=== PATIENT | female | born 1960 | race Caucasian/White ===

== ENCOUNTER 2021-08-26 13:57 | Inpatient (IN) | payer OTHER ==
[~2021-08-26] VITALS: Ht 165.1 cm; Wt 99.3 kg
[2021-08-26 14:07] VITALS: BP_SYST 142
--- NOTE | 2021-08-26 14:20 | NUR ---
Patient to ER bed 5 to gown for evaluation. Side rails up. Report given to ADALBERTO JONES.
[2021-08-26] MEDS ORDERED: NEPH GT (14:50)
[2021-08-26] MEDS ORDERED: LIP80 GT (14:50)
[2021-08-26] MEDS ORDERED: ASA81 PO (14:50)
[2021-08-26] MEDS ORDERED: BISA10SU61 RC (14:50)
[2021-08-26] MEDS ORDERED: CHLO473M5 PO (14:50)
[2021-08-26] MEDS ORDERED: ALBU8.5H8 INH (14:50)
[2021-08-26] MEDS ORDERED: HYDR-3917 PO (14:50)
[2021-08-26] MEDS ORDERED: AMLO5TAB4 GT (14:50)
[2021-08-26] MEDS ORDERED: COLL100 GT (14:50)
[2021-08-26] MEDS ORDERED: CARV25TA55 GT (14:50)
[2021-08-26] MEDS ORDERED: VALP500S4 GT (14:50)
[2021-08-26] MEDS ORDERED: CAT1PAT GT (14:50)
[2021-08-26] MEDS ORDERED: MIDO10TA GT (14:50)
[2021-08-26] MEDS ORDERED: ACET325T GT (14:50)
[2021-08-26] MEDS ORDERED: LACT10SO7 GT (14:50)
[2021-08-26] MEDS ORDERED: CLOP75TA32 GT (14:50)
[2021-08-26] MEDS ORDERED: FER300L GT (14:50)
[2021-08-26] MEDS ORDERED: LEVE500T9 GT (14:50)
--- NOTE | 2021-08-26 14:52 | NUR ---
Medication reconciliation completed with information provided by [facility]. Any prior medication reconciliation on file was reviewed and corrected.
[2021-08-26] MEDS ORDERED: MORPHINE 4 MG INJ. 4 MG/ML VIAL IVP ONE (15:15)
--- NOTE | 2021-08-26 15:17 | NUR ---
ER at bedside examining patient.
--- NOTE | 2021-08-26 15:39 | NUR ---
# 22 gauge angiocath placed to right forearm. Use of asceptic technique. Opsite placed over site. Blood return noted. Blood for lab drawn from site. Flushed with 10 cc of normal saline. No evidence of infiltration noted. Patient tolerated well.
[2021-08-26 15:56] LABS: BASOPHILS # (AUTO) 0.1 K/uL (0.0-0.2); BASOPHILS % (AUTO) 0.7 % (0.0-2.0); EOSINOPHILS # (AUTO) 1.1 K/uL (0.0-0.4); EOSINOPHILS % (AUTO) 13.3 % (0.0-4.0); HEMATOCRIT 34.7 % (36-48); HEMOGLOBIN 11.7 g/dL (12.0-16.0); LYMPHOCYTES # (AUTO) 1.9 K/uL (1.0-5.5); LYMPHOCYTES % (AUTO) 22.9 % (20.5-51.5); MEAN CORPUSCULAR HEMOGLOBIN 31 pg (27-31); MEAN CORPUSCULAR HGB CONC 34 % (32-36); MEAN CORPUSCULAR VOLUME 90 fL (79.0-98.0); MONOCYTES # (AUTO) 0.6 K/uL (0.0-1.0); MONOCYTES % (AUTO) 7.7 % (1.7-9.3); NEUTROPHILS # (AUTO) 4.7 K/uL (1.8-7.7); NEUTROPHILS % (AUTO) 55.4 % (40.0-70.0); PLATELET COUNT (AUTO) 127 K/uL (130-430); RED BLOOD CELL COUNT(AUTO) 3.84 MIL/uL (4.2-6.2); RED CELL DISTRIBUTION WIDTH 18.9 % (9.0-15.0); WHITE BLOOD COUNT (AUTO) 8.4 K/uL (4.8-10.8)
[2021-08-26 16:07] LABS: CALCIUM 10.7 mg/dL (8.4-11.0); POTASSIUM 4.7 mmol/L (3.5-5.1)
[2021-08-26 16:20] LABS: ALBUMIN 2.8 g/dL (3.4-4.8); TOTAL BILIRUBIN 0.2 mg/dL (0.0-1.0)
[2021-08-26 16:23] LABS: CREATININE 7.67 mg/dL (0.55-1.30)
--- NOTE | 2021-08-26 17:17 | NUR ---
Note angelita in EDM - 08/26/21 at 1719 by [email or web address] Admit bed requested Patient will be admitted to care of . Admitted to MedSurg unit. Diagnosis Renal Failure Inpatient Yes Observation No Orientation concerns or request close to nursing station No Covid Status Negative On vent or bipap No Isolation requirements No Needs a sitter No From Home [facility] Requires Dialysis Yes Med Rec Completed Yes
--- NOTE | 2021-08-26 17:19 | NUR ---
Admit bed requested Patient will be admitted to care of . Admitted to Tele unit. Diagnosis Renal Failure Inpatient Yes Observation No Orientation concerns or request close to nursing station No Covid Status Negative On vent or bipap No Isolation requirements No Needs a sitter No From Home [facility] Requires Dialysis Yes Med Rec Completed Yes
--- NOTE | 2021-08-26 19:06 | NUR ---
Admission Note Received patient from ER with diagnosis of RENAL FAILURE. Initial Plan of Care discussed-patient verbalized understanding. riented to room, call light, pain management and safety.
--- NOTE | 2021-08-26 19:22 | NUR ---
Patient will be admitted to care of Dr. Dumont. Admitted to Tele unit. Will go to room 120A. Belongings list completed. Complete and up to date summary report printed. SBAR report to be given at bedside with opportunity for questions.
[2021-08-26 19:30] VITALS: BP_SYST 141
--- NOTE | 2021-08-26 19:59 | NUR ---
KAREN Arthur spoke to Dr. Thomas over phone, received order for dialysis: 3Hr, 3K+, UF 2-2.5L
[2021-08-26 20:00] VITALS: BP_SYST 141
[2021-08-26] MEDS ORDERED: NALOXONE HCL 0.4 MG/ML AMP (NARCAN) IVP PRN (20:30)
[2021-08-26] MEDS ORDERED: GLUCOSE (DEXTROSE) ORAL GEL -Adults PO PRN (20:30)
[2021-08-26] MEDS ORDERED: D5W 1,000 ML IV PRN (20:30)
[2021-08-26] MEDS ORDERED: DEXTROSE 50% JECT 50 ML DISP.SYRIN IVP PRN (20:30)
[2021-08-26] MEDS ORDERED: HEPARIN SODIUM,PORCINE 5,000 UNITS/ML VIAL MC ONE (20:45)
[2021-08-26] MEDS: MORPHINE 2 MG/ML INJ. SYRINGE IVP PRN (21:26)
[2021-08-27] VITALS (7 sets, daily range): BP systolic 114–143
[2021-08-27] MEDS ORDERED: INSULIN REGULAR, HUMAN 100 UNITS/ML, 10 ML VIAL (humuLIN R) SUBCUT PRN
[2021-08-27 07:00] LABS: BASOPHILS # (AUTO) 0.1 K/uL (0.0-0.2); BASOPHILS % (AUTO) 0.6 % (0.0-2.0); EOSINOPHILS # (AUTO) 0.8 K/uL (0.0-0.4); EOSINOPHILS % (AUTO) 8.6 % (0.0-4.0); HEMATOCRIT 36.3 % (36-48); HEMOGLOBIN 12.2 g/dL (12.0-16.0); LYMPHOCYTES # (AUTO) 1.6 K/uL (1.0-5.5); LYMPHOCYTES % (AUTO) 16.4 % (20.5-51.5); MEAN CORPUSCULAR HEMOGLOBIN 31 pg (27-31); MEAN CORPUSCULAR HGB CONC 34 % (32-36); MEAN CORPUSCULAR VOLUME 91 fL (79.0-98.0); MONOCYTES # (AUTO) 0.9 K/uL (0.0-1.0); MONOCYTES % (AUTO) 8.7 % (1.7-9.3); NEUTROPHILS # (AUTO) 6.4 K/uL (1.8-7.7); NEUTROPHILS % (AUTO) 65.7 % (40.0-70.0); PLATELET COUNT (AUTO) 123 K/uL (130-430); RED BLOOD CELL COUNT(AUTO) 3.99 MIL/uL (4.2-6.2); RED CELL DISTRIBUTION WIDTH 18.9 % (9.0-15.0); WHITE BLOOD COUNT (AUTO) 9.8 K/uL (4.8-10.8)
[2021-08-27 07:03] LABS: ALBUMIN 2.9 g/dL (3.4-4.8); CALCIUM 10.3 mg/dL (8.4-11.0); CREATININE 4.92 mg/dL (0.55-1.30); POTASSIUM 4.2 mmol/L (3.5-5.1); TOTAL BILIRUBIN 0.2 mg/dL (0.0-1.0)
--- NOTE | 2021-08-27 10:35 | NUR ---
CONSULT NEPHROLOGY ESRD DR DILL.STEPHIE [phone] BEAL IS RESPIRATORY SUPPORT TECHNICIAN PER DR BEAL'S NOTES IS AWARE
[2021-08-27] MEDS: ACETAMINOPHEN 650 MG/20.3 ML UDC GT PRN (21:27)
[2021-08-28 00:14] VITALS: BP_SYST 133
[2021-08-28 07:47] LABS: BASOPHILS % (AUTO) 0.5 % (0.0-2.0); EOSINOPHILS # (AUTO) 1.1 K/uL (0.0-0.4); EOSINOPHILS % (AUTO) 11.6 % (0.0-4.0); HEMATOCRIT 34.2 % (36-48); HEMOGLOBIN 11.5 g/dL (12.0-16.0); LYMPHOCYTES # (AUTO) 2.5 K/uL (1.0-5.5); LYMPHOCYTES % (AUTO) 26.2 % (20.5-51.5); MEAN CORPUSCULAR HEMOGLOBIN 31 pg (27-31); MEAN CORPUSCULAR HGB CONC 34 % (32-36); MEAN CORPUSCULAR VOLUME 91 fL (79.0-98.0); MONOCYTES # (AUTO) 0.9 K/uL (0.0-1.0); NEUTROPHILS # (AUTO) 4.9 K/uL (1.8-7.7); NEUTROPHILS % (AUTO) 51.7 % (40.0-70.0); PLATELET COUNT (AUTO) 118 K/uL (130-430); RED BLOOD CELL COUNT(AUTO) 3.76 MIL/uL (4.2-6.2); RED CELL DISTRIBUTION WIDTH 18.5 % (9.0-15.0); WHITE BLOOD COUNT (AUTO) 9.4 K/uL (4.8-10.8)
[2021-08-28 08:04] LABS: CALCIUM 10.9 mg/dL (8.4-11.0); CREATININE 7.41 mg/dL (0.55-1.30); POTASSIUM 3.9 mmol/L (3.5-5.1)
[2021-08-28 08:31] VITALS: BP_SYST 134
[2021-08-28 08:36] VITALS: BP_SYST 134
[2021-08-28 12:37] VITALS: BP_SYST 111
--- NOTE | 2021-08-28 14:39 | NUR ---
Dietitian Recommendations * Continue Nepro at 50 ml/hr * Provides 2124 kcals/day, 97 g protein/day * Meeting 90% of upper end of estimated caloric needs and 96% of upper end estimated protein needs Please refer to Nutrition Assessment for details. Addendum: 08/28/21 at [address] Amended: Links added.
[2021-08-28 16:45] VITALS: BP_SYST 114
[2021-08-28] MEDS: IPRATROPIUM/ALBUTEROL SULFATE 3 ML AMPUL.NEB (DUONEB) INH SCH ×2 (19:48→23:26)
[2021-08-28 20:00] VITALS: BP_SYST 131
--- NOTE | 2021-08-28 20:00 | NUR ---
Report received from Anna JONES. Pt is awake alert and oriented x3, vs stable, nsr on tele, no acute distress, trach in place with t-tube, no acute respiratory distress, left hemiplegia noted, tube feeding in progress. Improvised tube flush made in order to flush feeding tube, flushing well without residua. Repositioned and turned pt to prevent skin breakdown. Assuming care and will continue to monitor pt.
[2021-08-28] MEDS: ACETAMINOPHEN 650 MG/20.3 ML UDC GT PRN (22:03)
--- NOTE | 2021-08-29 | NUR ---
Repositioned and turned pt, no significant changes, pt asleep without sign of distress.
[2021-08-29 00:07] VITALS: BP_SYST 156
[2021-08-29] MEDS: IPRATROPIUM/ALBUTEROL SULFATE 3 ML AMPUL.NEB (DUONEB) INH SCH ×6 (03:00→23:15)
[2021-08-29 08:05] VITALS: BP_SYST 140
--- NOTE | 2021-08-29 08:05 | NUR ---
INITIAL ROUNDS Received pt AAOx3, no s/s resp distress, no c/o pain or discomfort. Pt has trach to T-Bar with O2 3L. Nepro infusing well at ordered rate via G-tube with no residual noted. HOB elevated for aspiration precautions. Plan of care for the day reviewed with pt-pt nodded her head "yes". Pt repositioned with pillow support and heels off-loaded for skin care and comfort. Side rails up x3, bed alarm on and room close to nursing station for safety. Call light within reach.
--- NOTE | 2021-08-29 08:45 | NUR ---
CM: SPOKE WITH MARIA DOLORES CANELA) FROM [facility], WAS ASKED WHY THE PT DID NOT RECEIVE DIALYSIS AT THE FACILITY AND HAD TO BE TRANSFERRED HERE FOR EMERGENCY [place], ALSO ASKED IF PT STILL HAVE A ROOM AT [facility] FOR TRANSFER BACK ONCE MEDICALLY STABLE? SHE RESPONDED BY SAYING THAT TRANSPORTATION COULD NOT BE ESTABLISHED TO TAKE PT TO [place] CENTER, AND HER M.D. DECIDED TO HAVE HER TRANSPORTED [facility]IALYSIS [place], PT WAS BROUGHT HERE TO [facility] AND SHE IS NOT CERTAIN IF SHE IS ELIGIBLE TO RETURN TO THEIR FACILITY, SHE SPEAK WITH HER ADMINISTRATION AND CALL BACK WITH AN ANSWER.
--- NOTE | 2021-08-29 08:54 | NUR ---
Dance Historian *LATE ENTRY* entered for 08/28/[address] REPORTER Zahira responded to a generated request for social work support for "Pt. at suicidal risk". The following was reviewed in the 08/26 admission assessment: Refer to SW: NO Pt/SO request Social Service Eval: NO Wish to be : NO Suicidal Thoughts: NO Traver Suicidal Scale: NO Refer to SS for suicide risk: YES ROV[address] REPORTER consulted with patient's RN Esha who denied patient expressing suicidal ideation. ROV[address] REPORTER met with patient at bedside, and patient denied any SI [employer]OV[address] REPORTER will continue to be available if need arises.
[2021-08-29] MEDS ORDERED: HEPARIN SODIUM,PORCINE 5,000 UNITS/ML VIAL IVP ONE (11:00)
[2021-08-29] MEDS ORDERED: HEPARIN SODIUM,PORCINE 5,000 UNITS/ML VIAL MC ONE (11:00)
[2021-08-29 12:08] VITALS: BP_SYST 107
[2021-08-29] MEDS: MORPHINE 2 MG/ML INJ. SYRINGE IVP PRN ×2 (13:05→17:48)
--- NOTE | 2021-08-29 13:14 | NUR ---
HD DONE/ROUNDS/TURN HD completed, 2L out. Pt c/o pain 11/05 given Morphine as ordered. Pt repositioned with pillow support and heels off-loaded for skin care and comfort. Aspiration and safety precautions in place. Call light within reach. precautions in place. New bottle of Nepro now infusing well at ordered rate via g-tube.
[2021-08-29 16:53] VITALS: BP_SYST 128
--- NOTE | 2021-08-29 18:33 | NUR ---
RENAL MD Per Dr. Bowers pt stable to go back to facility.
--- NOTE | 2021-08-29 18:35 | NUR ---
CLOSING NOTE Pt resting quietly in bed with no s/s resp distress, no further c/o pain or discomfort. Aspiration, skin and safety precautions remain in place. Call light within reach.
[2021-08-29 20:00] VITALS: BP_SYST 119
--- NOTE | 2021-08-29 20:00 | NUR ---
Received pt AAOx3, no s/s resp distress, no c/o pain or discomfort. Pt has trach to T-Bar with O2 2L. Nepro infusing well at ordered rate via G-tube with no residual noted. HOB elevated for aspiration precautions. Plan of care for the day reviewed with pt-pt nodded her head "yes". Pt repositioned with pillow support and heels off-loaded for skin care and comfort. Side rails up x3, bed alarm on and room close to nursing station for safety. Call light within reach.will continue to monitor.
[2021-08-29] MEDS: ACETAMINOPHEN 650 MG/20.3 ML UDC GT PRN (20:37)
--- NOTE | 2021-08-30 | NUR ---
NO CHANGES NOTED FROM PREVIOUS ASSESSMENT, REPOSITIONED PER COMFORT, WILL CONTINUE TO MONITOR.
[2021-08-30 00:22] VITALS: BP_SYST 133
[2021-08-30] MEDS: IPRATROPIUM/ALBUTEROL SULFATE 3 ML AMPUL.NEB (DUONEB) INH SCH ×6 (03:00→23:36)
--- NOTE | 2021-08-30 04:00 | NUR ---
PT RESTING COMFORTABLY IN BED, NO S/S OF DISTRESS OR DISCOMFORT NOTED, TBAR 2L ON TRACH, REPOSITIONED PER COMFORT, G-TUBE ASPIRATED 25CC AND FLUSH, WILL CONTINUE TO MONITOR.
[2021-08-30 06:51] LABS: BASOPHILS # (AUTO) 0.1 K/uL (0.0-0.2); BASOPHILS % (AUTO) 0.9 % (0.0-2.0); EOSINOPHILS # (AUTO) 0.9 K/uL (0.0-0.4); EOSINOPHILS % (AUTO) 11.1 % (0.0-4.0); HEMATOCRIT 36.1 % (36-48); HEMOGLOBIN 12.1 g/dL (12.0-16.0); LYMPHOCYTES # (AUTO) 2.1 K/uL (1.0-5.5); MEAN CORPUSCULAR HEMOGLOBIN 31 pg (27-31); MEAN CORPUSCULAR HGB CONC 33 % (32-36); MEAN CORPUSCULAR VOLUME 92 fL (79.0-98.0); MONOCYTES # (AUTO) 0.8 K/uL (0.0-1.0); MONOCYTES % (AUTO) 9.3 % (1.7-9.3); NEUTROPHILS # (AUTO) 4.6 K/uL (1.8-7.7); NEUTROPHILS % (AUTO) 53.7 % (40.0-70.0); PLATELET COUNT (AUTO) 137 K/uL (130-430); RED BLOOD CELL COUNT(AUTO) 3.93 MIL/uL (4.2-6.2); RED CELL DISTRIBUTION WIDTH 18.7 % (9.0-15.0); WHITE BLOOD COUNT (AUTO) 8.6 K/uL (4.8-10.8)
[2021-08-30 06:58] LABS: CALCIUM 11.4 mg/dL (8.4-11.0); CREATININE 7.36 mg/dL (0.55-1.30); POTASSIUM 4.1 mmol/L (3.5-5.1)
--- NOTE | 2021-08-30 07:56 | NUR ---
REPORT GIVEN TO JOHN FOR CONTINUITY OF CARE ALL QUESTIONS WERE ANSWERED AND RN VERBALIZED UNDERSTANDING.
[2021-08-30 08:00] VITALS: BP_SYST 138
[2021-08-30] MEDS: ACETAMINOPHEN 650 MG/20.3 ML UDC GT PRN ×2 (08:40→16:34)
--- NOTE | 2021-08-30 09:00 | NUR ---
CM: PT ADMITTED TO HOSPITAL DUE TO MISSED DIALYSIS TX R/T NO AVAILABLE TRANSPORTATION SETUP, CALLED [facility] FOR ASSISTANCE AND SPOKE WITH ANGELITO WHITTEN , STATED THERE'S BEEN ALMOST NO AVAILABLE DIALYSIS TRANSPORT VENDORS THAT WILL GO INTO THE [facility], BUT IF I WANT TO SEND PT INFO FOR REVIEW FAX TO , WILL AWAIT RESPONSES.
[2021-08-30] MEDS ORDERED: NS IV ONE (11:30)
[2021-08-30] MEDS ORDERED: PAMIDRONATE DISODIUM IV ONE (11:30)
[2021-08-30 12:43] VITALS: BP_SYST 125
[2021-08-30 16:09] VITALS: BP_SYST 130
--- NOTE | 2021-08-30 19:19 | NUR ---
pt confused,resting well in bed,give IV antibiotic due,no adverse reactions noted. called and informed of pt condition,discharge on hold per requests d/c planning called and notified lang that d/c on hold.called [facility] and spoke to nurse erika and notified her that d/c on hold today,pt would needs vancomycin with HD when gets d/c per ID consult .erika said they can accept pt with vanco but awaiting medical clear to d/c. Addendum: 08/30/21 at 1925 by [facility] traffic agent above notes was error for wrong patient
[2021-08-30 20:00] VITALS: BP_SYST 123
--- NOTE | 2021-08-30 20:00 | NUR ---
REC'D PT AAOX3, NO S/S OF ACUTE RESPIRATORY DISTRESS NOTED, NO C/O PAIN OR DISCOMFORT, HOB ELEVATED FOR ASPIRATION PRECAUTIONS, PT ON TUBE FEEDING NEPRO 1.8CAL AT 50ML/HR WITH WATER FLUSH OF 100ML/HR Q4H, VITAL SIGN STABLE, PLAN OF CARE FOR THE DAY REVIEWED WITH PT, PT VERBALIZED UNDERSTANDING, PT REPOSITIONED PER COMFORT WITH PILLOW SUPPORT AND HEELS OFF LOADED, SIDE RAILS UPX3, BED ALARM ON AND ROOM CLOSE TO NURSING STATION FOR SAFETY, CALL LIGHT WITHIN REACH, WILL CONTINUE TO MONITOR. Addendum: 08/31/21 at 0417 by [facility] Elaine terminal worker EC'D PT AAOX3, NO S/S OF ACUTE RESPIRATORY DISTRESS NOTED, NO C/O PAIN OR DISCOMFORT, HOB ELEVATED FOR ASPIRATION PRECAUTIONS, PT ON TUBE FEEDING NEPRO 1.8CAL AT 50ML/HR WITH WATER FLUSH OF 100ML/HR Q4H, PT HAS TRACH PORTEX #7 ON TBAR 2L, VITAL SIGN STABLE, PLAN OF CARE FOR THE DAY REVIEWED WITH PT, PT VERBALIZED UNDERSTANDING, PT REPOSITIONED PER COMFORT WITH PILLOW SUPPORT AND HEELS OFF LOADED, SIDE RAILS UPX3, BED ALARM ON AND ROOM CLOSE TO NURSING STATION FOR SAFETY, CALL LIGHT WITHIN REACH, WILL CONTINUE TO MONITOR.
[2021-08-30] MEDS: DIPHENHYDRAMINE HCL 12.5 MG/5 ML UDC GT SCH (21:41)
[2021-08-30] MEDS: MORPHINE 2 MG/ML INJ. SYRINGE IVP PRN (21:42)
--- NOTE | 2021-08-31 | NUR ---
PT ROUNDED ON,NO CHANGES NOTED FROM PREVIOUS ASSESSMENT, REPOSITIONED PER COMFORT, WILL CONTINUE TO MONITOR.
[2021-08-31 01:48] VITALS: BP_SYST 138
--- NOTE | 2021-08-31 04:18 | NUR ---
PT RESTING COMFORTABLY IN BED, NO S/S OF DISTRESS OR DISCOMFORT NOTED, TBAR 2L ON TRACH, REPOSITIONED PER COMFORT, NO RESIDUAL ASPIRATED, TOLERATES FEEDING WELL, WILL CONTINUE TO MONITOR.
[2021-08-31] MEDS: DIPHENHYDRAMINE HCL 12.5 MG/5 ML UDC GT SCH ×3 (05:44→22:05)
[2021-08-31] MEDS: IPRATROPIUM/ALBUTEROL SULFATE 3 ML AMPUL.NEB (DUONEB) INH SCH ×5 (07:00→20:36)
[2021-08-31 07:20] LABS: ALBUMIN 2.8 g/dL (3.4-4.8); CALCIUM 11.8 mg/dL (8.4-11.0); PHOSPHORUS 5.6 mg/dL (2.7-4.5); POTASSIUM 4.6 mmol/L (3.5-5.1); TOTAL BILIRUBIN 0.2 mg/dL (0.0-1.0)
[2021-08-31 07:33] LABS: CREATININE 9.52 mg/dL (0.55-1.30)
[2021-08-31 07:53] LABS: BASOPHILS % (AUTO) 0.5 % (0.0-2.0); EOSINOPHILS % (AUTO) 12.5 % (0.0-4.0); HEMATOCRIT 34.4 % (36-48); HEMOGLOBIN 11.5 g/dL (12.0-16.0); LYMPHOCYTES # (AUTO) 2.5 K/uL (1.0-5.5); LYMPHOCYTES % (AUTO) 31.1 % (20.5-51.5); MEAN CORPUSCULAR HEMOGLOBIN 31 pg (27-31); MEAN CORPUSCULAR HGB CONC 34 % (32-36); MEAN CORPUSCULAR VOLUME 92 fL (79.0-98.0); MONOCYTES # (AUTO) 0.8 K/uL (0.0-1.0); MONOCYTES % (AUTO) 9.3 % (1.7-9.3); NEUTROPHILS # (AUTO) 3.8 K/uL (1.8-7.7); NEUTROPHILS % (AUTO) 46.6 % (40.0-70.0); PLATELET COUNT (AUTO) 112 K/uL (130-430); RED BLOOD CELL COUNT(AUTO) 3.74 MIL/uL (4.2-6.2); RED CELL DISTRIBUTION WIDTH 18.6 % (9.0-15.0); WHITE BLOOD COUNT (AUTO) 8.1 K/uL (4.8-10.8)
[2021-08-31] MEDS ORDERED: HEPARIN SODIUM,PORCINE 5,000 UNITS/ML VIAL MC ONE (10:15)
[2021-08-31] MEDS ORDERED: ALBUMIN HUMAN 25% 200 ML IV ONE (10:45)
[2021-08-31 11:34] VITALS: BP_SYST 126
[2021-08-31] MEDS ORDERED: NS IV ONE (13:00)
[2021-08-31] MEDS ORDERED: PAMIDRONATE DISODIUM IV ONE (13:00)
[2021-08-31] MEDS: MORPHINE 2 MG/ML INJ. SYRINGE IVP PRN ×2 (13:00→22:08)
--- NOTE | 2021-08-31 13:30 | NUR ---
CM: CALLED [facility] , REQUEST SERVICES FOR TRANSPORTATION TO DIALYSIS TX / / SAT/ WITH 1000A CHAIR TIME, PT INFO FAXED TO [facility] FOR REVIEW WILL WAIT FOR RESULTS.
[2021-08-31 15:53] VITALS: BP_SYST 116
--- NOTE | 2021-08-31 19:10 | NUR ---
OPENING NOTES RECEIVED PATIENT RESTING BED, FAMILY AT BEDSIDE, NO DISTRESS NOTED. PATIENT DEMONSTRATES PROPER USAGE OF CALL LIGHT. CALL LIGHT WITHIN REACH, BED ALARM ON, BED AT LOWEST POSITION. FALL, RESPIRATORY, ASPIRATION, AND SAFETY PRECAUTIONS IN PLACE. DISCUSSED PLAN OF CARE WITH PATIENT. WILL CONTINUE TO MONITOR.
--- NOTE | 2021-08-31 19:40 | NUR ---
0800: AWAKE, ALERT, ORIENTED X 3 TO NAME, PERSON AND PLACE. RESPIRATION EVEN AND UNLABORED NO S/S OF ACUTE DISTRESS NOTED. ABLE TO EXPRESS NEEDS , NO C/O ANY PAIN OR DISCOMFORT @ THIS TIME. ABDOMEN SOFT AND NON-DISTENDED, POSITIVE BOWEL SOUND X 4 NO N/V OR DIARRHEA NOTED. G-TUBE WITH ONGOING FEEDING TOLERATED WELLL RESIDUAL < 20 CC. SKIN WARM AND DRY INTACT, HX OF CVA WITH LEFT HEMIPARESIS. WILL CONTINUE TO REASSESS PATIENT Q HOURLY AND PRN. 1900: ENDORSED PATIENT TO PM SHIFT NURSE.
[2021-08-31 20:00] VITALS: BP_SYST 132
[2021-09-01] VITALS: BP_SYST 106
[2021-09-01] MEDS: IPRATROPIUM/ALBUTEROL SULFATE 3 ML AMPUL.NEB (DUONEB) INH SCH ×7 (05:06→23:31)
[2021-09-01] MEDS: DIPHENHYDRAMINE HCL 12.5 MG/5 ML UDC GT SCH ×3 (05:44→23:07)
--- NOTE | 2021-09-01 06:10 | NUR ---
SPOKE TO DAUGHTER, MOHINI, PROVIDED UPDATES. DAUGHTER REQUESTS AN UPDATE FROM THE RENAL MD AND DAUGHTER ABLE TO SPEAK TO MOTHER THROUGH CELL PHONE. WILL CONTINUE TO MONITOR.
[2021-09-01 06:46] LABS: BASOPHILS # (AUTO) 0.1 K/uL (0.0-0.2); BASOPHILS % (AUTO) 0.9 % (0.0-2.0); EOSINOPHILS % (AUTO) 12.4 % (0.0-4.0); HEMATOCRIT 33.4 % (36-48); HEMOGLOBIN 11.3 g/dL (12.0-16.0); LYMPHOCYTES # (AUTO) 1.9 K/uL (1.0-5.5); LYMPHOCYTES % (AUTO) 24.1 % (20.5-51.5); MEAN CORPUSCULAR HEMOGLOBIN 31 pg (27-31); MEAN CORPUSCULAR HGB CONC 34 % (32-36); MEAN CORPUSCULAR VOLUME 91 fL (79.0-98.0); MONOCYTES # (AUTO) 0.8 K/uL (0.0-1.0); MONOCYTES % (AUTO) 10.7 % (1.7-9.3); NEUTROPHILS % (AUTO) 51.9 % (40.0-70.0); PLATELET COUNT (AUTO) 117 K/uL (130-430); RED BLOOD CELL COUNT(AUTO) 3.68 MIL/uL (4.2-6.2); RED CELL DISTRIBUTION WIDTH 18.4 % (9.0-15.0); WHITE BLOOD COUNT (AUTO) 7.7 K/uL (4.8-10.8)
--- NOTE | 2021-09-01 07:12 | NUR ---
CLOSING NOTES RECEIVED PATIENT RESTING BED, NO DISTRESS NOTED. PATIENT DEMONSTRATES PROPER USAGE OF CALL LIGHT. CALL LIGHT WITHIN REACH, BED ALARM ON, BED AT LOWEST POSITION. FALL, RESPIRATORY, ASPIRATION, AND SAFETY PRECAUTIONS IN PLACE THROUGHOUT SHIFT. ALL SHIFT MET THROUGHOUT SHIFT. WILL ENDORSE CARE TO ONCOMING SHIFT.
[2021-09-01 07:59] LABS: CALCIUM 11.6 mg/dL (8.4-11.0); CREATININE 6.57 mg/dL (0.55-1.30); PHOSPHORUS 4.4 mg/dL (2.7-4.5); POTASSIUM 4.3 mmol/L (3.5-5.1)
[2021-09-01 08:00] VITALS: BP_SYST 119
[2021-09-01 08:26] VITALS: BP_SYST 119
[2021-09-01] MEDS ORDERED: NS IV ONE ×2 (11:00→11:22)
[2021-09-01] MEDS ORDERED: PAMIDRONATE DISODIUM IV ONE ×2 (11:00→11:22)
[2021-09-01 12:38] VITALS: BP_SYST 114
[2021-09-01 16:15] VITALS: BP_SYST 117
--- NOTE | 2021-09-01 16:40 | NUR ---
CM: s/w [facility] # [phone] opt#1, to arrange transportation [facility] to unable to discharge pt today. There is no be assignment at the rehab. The pt will get HD on Saturday at [facility] as scheduled then possibly transfer to the rehab once there is bed available. Per MARIA DOLORES Chicas the transportation to and from rehab/[facility] has been arranged.
[2021-09-01] MEDS: ACETAMINOPHEN 650 MG/20.3 ML UDC GT PRN ×2 (18:21→23:07)
[2021-09-01 21:47] VITALS: BP_SYST 127
[2021-09-01] MEDS: MORPHINE 2 MG/ML INJ. SYRINGE IVP PRN (21:50)
[2021-09-02 00:08] VITALS: BP_SYST 159
[2021-09-02] MEDS: IPRATROPIUM/ALBUTEROL SULFATE 3 ML AMPUL.NEB (DUONEB) INH SCH ×4 (03:11→16:39)
[2021-09-02] MEDS: ACETAMINOPHEN 650 MG/20.3 ML UDC GT PRN ×2 (05:25→19:11)
[2021-09-02] MEDS: DIPHENHYDRAMINE HCL 12.5 MG/5 ML UDC GT SCH ×2 (05:36→14:00)
[2021-09-02 07:02] LABS: BASOPHILS % (AUTO) 0.4 % (0.0-2.0); EOSINOPHILS # (AUTO) 0.8 K/uL (0.0-0.4); HEMATOCRIT 32.6 % (36-48); LYMPHOCYTES # (AUTO) 1.2 K/uL (1.0-5.5); LYMPHOCYTES % (AUTO) 14.4 % (20.5-51.5); MEAN CORPUSCULAR HEMOGLOBIN 31 pg (27-31); MEAN CORPUSCULAR HGB CONC 34 % (32-36); MEAN CORPUSCULAR VOLUME 91 fL (79.0-98.0); MONOCYTES # (AUTO) 0.8 K/uL (0.0-1.0); NEUTROPHILS # (AUTO) 5.6 K/uL (1.8-7.7); NEUTROPHILS % (AUTO) 66.2 % (40.0-70.0); PLATELET COUNT (AUTO) 105 K/uL (130-430); RED BLOOD CELL COUNT(AUTO) 3.58 MIL/uL (4.2-6.2); RED CELL DISTRIBUTION WIDTH 18.4 % (9.0-15.0); WHITE BLOOD COUNT (AUTO) 8.5 K/uL (4.8-10.8)
[2021-09-02 08:10] LABS: ALBUMIN 2.8 g/dL (3.4-4.8); CALCIUM 11.1 mg/dL (8.4-11.0); PHOSPHORUS 5.1 mg/dL (2.7-4.5); POTASSIUM 4.6 mmol/L (3.5-5.1); TOTAL BILIRUBIN 0.2 mg/dL (0.0-1.0)
[2021-09-02 10:08] LABS: CREATININE 8.81 mg/dL (0.55-1.30)
[2021-09-02 10:25] VITALS: BP_SYST 159
[2021-09-02 12:47] VITALS: BP_SYST 144
--- NOTE | 2021-09-02 15:00 | NUR ---
CM: late entry: faxed clinicals info package to [facility] attn: charge nurse and Hector , admission coordinator fax # [phone] and # [phone], tel [phone]. I lvm to Hector to review the clinicals and call back with bed assignment. Also spoke with Cecy /Medical Affairs Manager who gave bed # 207B bed available after 5 pm. >> Transportation: confirmed with [place] dispatcher/[facility] # [phone] opt #1 , the ride from [facility] to [facility] is on " will call" status. Addendum: 09/02/21 at 1645 by Slick Segovia RN Per /[facility], can not provide the transportation this pm dt no staff. Addendum: 09/02/21 at 1727 by Slick Segovia RN Per /[facility], stated the HD transportation is in review for approval, no scheduled rides set up yet.
[2021-09-02] MEDS ORDERED: HEPARIN SODIUM,PORCINE 5,000 UNITS/ML VIAL ONE (15:58)
[2021-09-02 16:30] VITALS: BP_SYST 148
--- NOTE | 2021-09-02 16:45 | NUR ---
CM : Transportation: arranged BLS/ respiratory with [facility] tel # [phone] for fruit picker machine operator time at 7 pm from [facility] to [facility] room # 207B. [facility]sy aware, the pt is on trach to t-bar with oxygen 2L nc, shallow suction prn. __ KAREN Juarez made aware of the fruit picker machine operator time. He will give report to [facility]. HD transportation: [facility] confirmed the transportation has been set up from [facility] to [facility] to fruit picker machine operator pt at 9 am for chair time at 10 am on September 05 and September 07. For additional transportation needs , [facility] staff is to arrange with [facility]. Addendum: 09/02/21 at 1737 by Slick Segovia RN Clementine Cazares [facility] about the transportation arrangement with [employer]. She will call [facility] to set up the subsequent rides to the HD CTR. [facility] under Dr Donta Bailey , address [address] [place] [address] tel [phone]. Addendum: 09/02/21 at 1806 by Slick Segovia RN Danish Newell/laverne moyer pt back to the rehab , she is agreeable with p/U this pm.
[2021-09-02] MEDS: MORPHINE 2 MG/ML INJ. SYRINGE IVP PRN (19:10)
--- NOTE | 2021-09-04 08:42 | NUR ---
CM: Confirmed with [facility], the chair time is at 1030 am TTHS.
== END 2021-09-02 19:03 | DRG 640 ==
LOC: SED 13:57 → STU 17:14 → SMU 08-30 18:23
PROVIDERS: ADMIT Internal Medicine; ATTEND Internal Medicine
PROC: 5A1D70Z Performance of Urinary Filtration, Intermittent, Less than 6 Hours Per Day (ICD-10-PCS; principal; 2021-08-26)
PROC: 5A1D70Z Performance of Urinary Filtration, Intermittent, Less than 6 Hours Per Day (ICD-10-PCS; 2021-08-29)
PROC: 5A1D70Z Performance of Urinary Filtration, Intermittent, Less than 6 Hours Per Day (ICD-10-PCS; 2021-08-31)
PROC: 5A1D70Z Performance of Urinary Filtration, Intermittent, Less than 6 Hours Per Day (ICD-10-PCS; 2021-09-02)
DX: E83.52 Hypercalcemia (principal); N18.6 End stage renal disease; I69.354 Hemiplegia and hemiparesis following cerebral infarction affecting left non-dominant side; E87.1 Hypo-osmolality and hyponatremia; D64.9 Anemia, unspecified; D63.8 Anemia in other chronic diseases classified elsewhere; Z20.822 Contact with and (suspected) exposure to COVID-19; Z93.0 Tracheostomy status; Z93.1 Gastrostomy status; Z79.1 Long term (current) use of non-steroidal anti-inflammatories (NSAID); Z79.899 Other long term (current) drug therapy
CPT/HCPCS: 36415; 71045; 80048; 80053; 82962; 83605; 84100; 84484; 85025; 87081; 90935; 94640; 94760; 96374; 99291; G0378; J1644; J1815; J2270; J2430; J7040; J7050

== ENCOUNTER 2021-10-26 13:12 | Inpatient (IN) | payer OTHER ==
[~2021-10-26] VITALS: Ht 162.6 cm; Wt 80.4 kg
[~2021-10-26 13:12] MED LIST: ACET325T GT; ALBU8.5H8 INH; AMLO5TAB4 GT; ASA81 GT; BISA10SU61 RC; CARV25TA55 GT; CAT1PAT GT; CHLO473M5 PO; CLOP75TA32 GT; COLL100 GT; FER300L GT; HYDR-3917 GT; LACT10SO7 GT; LEVE500T9 GT; LIP80 GT; MIDO10TA GT; NEPH GT; VALP500S4 GT
--- NOTE | 2021-10-26 13:12 | NUR ---
Placed in room 02 . Placed on patient monitor, blood pressure machine and pulse oximeter. To gown for exam. Side rails up.
--- NOTE | 2021-10-26 13:15 | NUR ---
Pt brought by ambulance , ACLS, with c/o BP 70/40 while she was in dialysis for 2 hours, pt A&Ox4,, pt has a trach connected to 4 L O2,denies pain, afebrile, skin pink and warm, denies N/V, will cont to monitor.
[2021-10-26 13:18] VITALS: BP_SYST 104
--- NOTE | 2021-10-26 14:20 | NUR ---
Dr Keyes evaluating patient at bedside
--- NOTE | 2021-10-26 14:45 | NUR ---
Secretions noted on Trach, RT was called
--- NOTE | 2021-10-26 15:11 | NUR ---
RT at bedside cleaning trach site
--- NOTE | 2021-10-26 15:11 | NUR ---
Pt A&Ox4, VSS, respirations even and unlabored, will cont to monitor
[2021-10-26 15:16] LABS: BASOPHILS % (AUTO) 0.4 % (0.0-2.0); EOSINOPHILS # (AUTO) 0.6 K/uL (0.0-0.4); EOSINOPHILS % (AUTO) 5.6 % (0.0-4.0); HEMOGLOBIN 7.3 g/dL (12.0-16.0); LYMPHOCYTES # (AUTO) 1.9 K/uL (1.0-5.5); LYMPHOCYTES % (AUTO) 17.5 % (20.5-51.5); MEAN CORPUSCULAR HEMOGLOBIN 32 pg (27-31); MEAN CORPUSCULAR HGB CONC 34 % (32-36); MEAN CORPUSCULAR VOLUME 94 fL (79.0-98.0); MONOCYTES # (AUTO) 1.1 K/uL (0.0-1.0); MONOCYTES % (AUTO) 10.5 % (1.7-9.3); PLATELET COUNT (AUTO) 155 K/uL (130-430); RED BLOOD CELL COUNT(AUTO) 2.31 MIL/uL (4.2-6.2); RED CELL DISTRIBUTION WIDTH 16.3 % (9.0-15.0); WHITE BLOOD COUNT (AUTO) 10.6 K/uL (4.8-10.8)
[2021-10-26 15:24] LABS: HEMATOCRIT 21.6 % (36-48)
--- NOTE | 2021-10-26 15:28 | NUR ---
Pt states she does not produce urine , refused catheter at this time
[2021-10-26 15:30] LABS: CALCIUM 8.9 mg/dL (8.4-11.0); CREATININE 5.7 mg/dL (0.55-1.30); POTASSIUM 3.8 mmol/L (3.5-5.1)
[2021-10-26 15:36] LABS: TOTAL BILIRUBIN 0.2 mg/dL (0.0-1.0)
[2021-10-26] MEDS ORDERED: PANTOPRAZOLE SODIUM 40 MG/VIAL (PROTONIX) IVP ONE (15:45)
[2021-10-26] MEDS ORDERED: LIDVIS100 MM (17:12)
--- NOTE | 2021-10-26 17:12 | NUR ---
MED REC DONE PER [facility]
[2021-10-26] MEDS ORDERED: PANTOPRAZOLE SODIUM 40 MG/VIAL (PROTONIX) ONE (18:11)
[2021-10-26 18:14] LABS: PROTHROMBIN TIME 10.7 SECS (9.5-12.5)
[2021-10-26] MEDS ORDERED: ONDANSETRON HCL 4 MG/2 ML VIAL IVP PRN (18:45)
[2021-10-26] MEDS ORDERED: ACETAMINOPHEN 325 MG TABLET PO PRN (18:45)
[2021-10-26] MEDS ORDERED: BISACODYL 10 MG/SUPPOSITORY RC PRN (18:45)
[2021-10-26] MEDS ORDERED: MIDODRINE HCL 5 MG TABLET (PROAMATINE) GT PRN (18:45)
[2021-10-26] MEDS ORDERED: LIDOCAINE VISCOUS 2%, 15 ML UDC MM PRN (18:45)
--- NOTE | 2021-10-26 19:02 | NUR ---
report recieved from KAREN Golden. pt in bed repositioned to right side with pillows placed under left extremities and under head. pt states she is not in pain, will monitor as needed
[2021-10-26 20:40] VITALS: BP_SYST 116
--- NOTE | 2021-10-26 22:08 | NUR ---
pt in bed resting, no acute distress. pt trach suctioned by RT. pt tolerated well. pt pending disposition. will monitor as needed
[2021-10-26 22:45] VITALS: BP_SYST 122
--- NOTE | 2021-10-26 22:48 | NUR ---
Transfer patient via [facility] aaox4, no sob noted and not in any distress, SBAR report given to Moreno RN at bedside for continuity of care.
[2021-10-26] MEDS: levETIRAcetam 500 MG TABLET GT SCH (23:34)
[2021-10-26] MEDS: VALPROIC ACID ORAL SYRUP 250 MG/5 ML UDC GT SCH (23:34)
[2021-10-26] MEDS: FERROUS SULFATE 300 MG/5 ML UDC GT SCH (23:34)
--- NOTE | 2021-10-27 01:36 | NUR ---
FIO2 TITRATED TO 5L/28%
--- NOTE | 2021-10-27 06:17 | NUR ---
CLOSING NOTE PATIENT IN BED, SLEEPING COMFORTABLY. NO S/S OF ACUTE DISTRESS NOTED. BREATHING EVEN AND UNLABORED, HOB RAISED, TRACH TO O2 ATTACHED, ON 5L OF OXYGEN, FI02 28%. IV SITE PATENT, NO SIGNS OF INFILTRATION OR INFECTION NOTED. SKIN WARM AND DRY TO TOUCH, NO SIGNS OF HYPOGLYCEMIA NOTED. ALL NEEDS MET THROUGHOUT SHIFT. FALL, SAFETY PRECAUTIONS MAINTAINED. WILL CONTINUE TO MONITOR UNTIL PATIENT CARE IS ENDORSED TO ONCOMING DAYSHIFT NURSE.
[2021-10-27 08:00] VITALS: BP_SYST 130
--- NOTE | 2021-10-27 08:00 | NUR ---
RECEIVED PT IN BED A/0X2-3 ABLE TO ANSWER QUESTIONS APPROPRIATELY AND ABLE TO MAKE NEEDS KNOWN. DENIES PAIN AT THIS TIME CALL LIGHT PLACED IN REACH WILL CONTINUE TO ASSESS AND MONITOR
[2021-10-27 08:48] LABS: CALCIUM 9.1 mg/dL (8.4-11.0); CREATININE 7.12 mg/dL (0.55-1.30); PHOSPHORUS 4.2 mg/dL (2.7-4.5); POTASSIUM 3.9 mmol/L (3.5-5.1)
[2021-10-27 09:01] LABS: TOTAL IRON BIND. CAPACITY 155 ug/dL (250-450)
[2021-10-27 09:08] LABS: BASOPHILS % (AUTO) 0.2 % (0.0-2.0); EOSINOPHILS # (AUTO) 0.8 K/uL (0.0-0.4); EOSINOPHILS % (AUTO) 10.2 % (0.0-4.0); HEMATOCRIT 22.9 % (36-48); HEMOGLOBIN 7.7 g/dL (12.0-16.0); LYMPHOCYTES # (AUTO) 1.9 K/uL (1.0-5.5); LYMPHOCYTES % (AUTO) 24.7 % (20.5-51.5); MEAN CORPUSCULAR HEMOGLOBIN 32 pg (27-31); MEAN CORPUSCULAR HGB CONC 34 % (32-36); MEAN CORPUSCULAR VOLUME 95 fL (79.0-98.0); MONOCYTES # (AUTO) 0.7 K/uL (0.0-1.0); MONOCYTES % (AUTO) 9.3 % (1.7-9.3); NEUTROPHILS # (AUTO) 4.3 K/uL (1.8-7.7); NEUTROPHILS % (AUTO) 55.6 % (40.0-70.0); PLATELET COUNT (AUTO) 139 K/uL (130-430); RED BLOOD CELL COUNT(AUTO) 2.43 MIL/uL (4.2-6.2); RED CELL DISTRIBUTION WIDTH 15.8 % (9.0-15.0); WHITE BLOOD COUNT (AUTO) 7.7 K/uL (4.8-10.8)
[2021-10-27] MEDS: NEPHROVITE, (FOLIC ACID/VITAMIN B COMP W-C 1 TAB) GT SCH (09:34)
[2021-10-27] MEDS: ATORVASTATIN 20 MG TABLET GT SCH (09:34)
[2021-10-27] MEDS: CLOPIDOGREL BISULFATE 75 MG TABLET GT SCH (09:34)
[2021-10-27] MEDS: FERROUS SULFATE 300 MG/5 ML UDC GT SCH ×2 (09:34→21:25)
[2021-10-27] MEDS: ASPIRIN 81 MG TAB.CHEW GT SCH (09:34)
[2021-10-27] MEDS: amLODIPine BESYLATE 5 MG TABLET GT SCH (09:39)
[2021-10-27] MEDS: VALPROIC ACID ORAL SYRUP 250 MG/5 ML UDC GT SCH ×3 (09:42→21:25)
[2021-10-27 12:00] VITALS: BP_SYST 119
--- NOTE | 2021-10-27 12:00 | NUR ---
NO SIGNIFICANT CHANGES AT THIS TIME WILL CONTINUE TO MONITOR AND ASSESS TURNED AND REPOSITIONED
[2021-10-27] MEDS: MIDODRINE HCL 5 MG TABLET (PROAMATINE) GT SCH ×2 (15:00→21:00)
[2021-10-27] MEDS: HYDROcodone/ACETAMIN 5-325 MG TAB (NORCO/ VICODIN) PO PRN (16:27)
[2021-10-27 16:47] VITALS: BP_SYST 146
[2021-10-27] MEDS ORDERED: EPOETIN ALFA-EPBX 10,000 UNITS/ML VIAL SUBCUT SCH (17:00)
--- NOTE | 2021-10-27 18:03 | NUR ---
TUBE FEEDING STARTED ORDERED TOLERATING WELL NO RESIDUAL NOTED HOB AT 45 DEGREES NO COMPLAINTS OF PAIN AT THIS TIME ALL NEEDS ANTICIPATED AND MET
--- NOTE | 2021-10-27 19:30 | NUR ---
PM OPENING NOTES HAND-OFF REPORT RECEIVED FROM SHADE JONES. ENDORSED: 1) REPORT TO [facility] TO ARRANGE FOR HD FOR SAT AT USUAL TIME OF 1330 AT [facility] [phone]. 2) GT FEEDING OFF AT 0800 3) PUREE FOOD TRAY REMAINS AT BEDSIDE AND NEEDS TO BE GIVEN TO PT OF YET. 3). PT RECEIVED IN BED AWAKE AND ALERT. G TUBE FEEDING INFUSING 50 ML/HR.
[2021-10-27 20:00] VITALS: BP_SYST 145
[2021-10-27] MEDS: levETIRAcetam 500 MG TABLET GT SCH (21:24)
--- NOTE | 2021-10-27 22:00 | NUR ---
MIDODRINE HELD. B/P 140'S/80.
--- NOTE | 2021-10-28 | NUR ---
PHONED AMANDA FERNANDEZ/MESSAGE LEFT. NEED NEPHRO CONSULT WELL ORDER FOR HD. SUPER MADE AWARE NEPRO CONSULT AND HD ORDER NEEDED FOR HD AT [facility] FOR , SAT SCHEDULE. PT NORMALLY GOES AT 1330 ON SAT. DIALYSIS NURSE CHU ALSO MADE AWARE OF NEED. STATED SHE WOULD FOLLOW THRU WITH THIS IN A.M.
--- NOTE | 2021-10-28 04:00 | NUR ---
TELE SR 74. DENIES CP OR ANY DISCOMFORT UNLESS MOVED.
[2021-10-28 06:48] LABS: CALCIUM 8.4 mg/dL (8.4-11.0)
--- NOTE | 2021-10-28 07:30 | NUR ---
PM CLOSING NOTES HAND-OFF REPORT TO PILY CONCERNING DELAY IN DISCHARGE PARTICULARS AND TO CALL [facility] WITH ALL TRANSPORT MATTERS. DISCHARGE PACKET HANDED OVER . RELINQUISHED CARE OF PT TO A.M NURSE AT THIS TIME.
--- NOTE | 2021-10-28 07:30 | NUR ---
HAND-OFF REPORT TO RETURNING NURSE SHADE. ENDORSED: GET NEPHRO CONSULT AND ORDER FOR HD FOR TODAY FROM [facility] OR THOSE TRAINING TECHNICIAN FOR HIM. TUBE FEEDING OFF AT 0800. PT IN BED AWAKE. NO DISTRESS. RELINQUISHED CARE OF PT AT THIS TIME.
[2021-10-28 07:39] LABS: BASOPHILS % (AUTO) 0.4 % (0.0-2.0); EOSINOPHILS # (AUTO) 0.7 K/uL (0.0-0.4); EOSINOPHILS % (AUTO) 7.7 % (0.0-4.0); HEMOGLOBIN 7.3 g/dL (12.0-16.0); LYMPHOCYTES # (AUTO) 1.7 K/uL (1.0-5.5); LYMPHOCYTES % (AUTO) 17.9 % (20.5-51.5); MEAN CORPUSCULAR HEMOGLOBIN 32 pg (27-31); MEAN CORPUSCULAR HGB CONC 34 % (32-36); MEAN CORPUSCULAR VOLUME 94 fL (79.0-98.0); NEUTROPHILS # (AUTO) 6.3 K/uL (1.8-7.7); PLATELET COUNT (AUTO) 149 K/uL (130-430); RED BLOOD CELL COUNT(AUTO) 2.27 MIL/uL (4.2-6.2); RED CELL DISTRIBUTION WIDTH 15.9 % (9.0-15.0); WHITE BLOOD COUNT (AUTO) 9.8 K/uL (4.8-10.8)
--- NOTE | 2021-10-28 08:00 | NUR ---
RECEIVED IN BED ASSESSMENT COMPLETED PLAN OF CARE REVIEWED PT ENDORSES SHE IS IN PAIN WILL MEDICATE ORDERED FOR PAIN CALL LIGHT IN REACH GT FEEDING TURNED OFF FROM 08-1600 WILL CONTINUE TO MONITOR AND ASSESS
[2021-10-28 08:06] LABS: FOLATE (FOLIC ACID) >20.0 ng/mL (>3.0)
[2021-10-28 08:29] LABS: CREATININE 8.67 mg/dL (0.55-1.30)
[2021-10-28 08:31] VITALS: BP_SYST 144
[2021-10-28 08:55] LABS: HEMATOCRIT 21.4 % (36-48)
[2021-10-28] MEDS: VALPROIC ACID ORAL SYRUP 250 MG/5 ML UDC GT SCH ×3 (09:47→21:37)
[2021-10-28] MEDS: CLOPIDOGREL BISULFATE 75 MG TABLET GT SCH (09:47)
[2021-10-28] MEDS: FERROUS SULFATE 300 MG/5 ML UDC GT SCH ×2 (09:47→21:33)
[2021-10-28] MEDS: ATORVASTATIN 20 MG TABLET GT SCH (09:47)
[2021-10-28] MEDS: HYDROcodone/ACETAMIN 5-325 MG TAB (NORCO/ VICODIN) PO PRN (09:48)
[2021-10-28] MEDS: amLODIPine BESYLATE 5 MG TABLET GT SCH (09:49)
[2021-10-28] MEDS: NEPHROVITE, (FOLIC ACID/VITAMIN B COMP W-C 1 TAB) GT SCH (09:49)
[2021-10-28] MEDS: ASPIRIN 81 MG TAB.CHEW GT SCH (09:49)
[2021-10-28] MEDS: MIDODRINE HCL 5 MG TABLET (PROAMATINE) GT SCH ×2 (09:50→14:13)
--- NOTE | 2021-10-28 11:54 | NUR ---
NO SIGNIFICANT CHANGES PT FOR HD TODAY AND AWARE PT TURNED AND REPOSITIONED WITH SMALL BM NOTED GOOD CORAL CARE GIVEN WILL CONTINUE TO MONITOR AND ASSESS
[2021-10-28 16:00] VITALS: BP_SYST 122
[2021-10-28] MEDS ORDERED: cefTRIAXone 1 GM IVPB PREMIX 50 ML IV ONE (17:00)
[2021-10-28] MEDS ORDERED: HEPARIN SODIUM,PORCINE 5,000 UNITS/ML VIAL ONE (17:41)
[2021-10-28] MEDS ORDERED: HEPARIN SODIUM, PORCINE 10,000 UNITS/ 10 ML VIAL MC ONE (17:45)
--- NOTE | 2021-10-28 18:21 | NUR ---
HD RN SAGE AT BEDSIDE 5,OOO UNITS OF HEPARIN X2 GIVEN TO HD RN SAGE DURING HD
--- NOTE | 2021-10-28 19:30 | NUR ---
INITIAL NOTE AT INITIAL ASSESSMENT, PATIENT IS RESTING IN BED, STABLE, NO SIGNS OF RESPIRATORY DISTRESS. HER DAUGHTER JAZMYNE IS AT BEDSIDE. PLAN OF CARE FOR THE EVENING IS COMMUNICATED TO PATIENT AND HER DAUGHTER. PATIENT VERBALIZES NO PAIN. BED IS LOCKED, ALARMED, AND AT THE LOWEST LEVEL. FALL, SAFETY, ASPIRATION, AND RESPIRATORY PRECAUTIONS WILL BE IN PLACE THROUGHOUT THE SHIFT. TRACH CARE WILL BE PROVIDED [id number]. PATIENT WILL BE TURNED [id number].
[2021-10-28 19:45] VITALS: BP_SYST 158
[2021-10-28] MEDS: levETIRAcetam 500 MG TABLET GT SCH (21:33)
[2021-10-29] VITALS: BP_SYST 134
--- NOTE | 2021-10-29 05:10 | NUR ---
HYGIENE CARE PATIENT HAD BOWEL MOVEMENT, HYGIENE CARE PROVIDED. PATIENT TOLERATED WELL. SHE IS REPOSITIONED FOR COMFORT. BED IS LOCKED, ALARMED, AND AT THE LOWEST LEVEL.
[2021-10-29] MEDS: HYDROcodone/ACETAMIN 5-325 MG TAB (NORCO/ VICODIN) PO PRN ×3 (05:44→20:50)
--- NOTE | 2021-10-29 06:14 | NUR ---
CLOSING NOTE PATIENT SLEPT WELL THROUGHOUT THE SHIFT, HER BLOOD PRESSURE REMAINED WNL. PATIENT IS ABLE TO COMMUNICATE BY WHISPERING/NODDING/SHAKING HEAD. PATIENT COMPLAINED ABOUT LEFT WRIST PAIN, PRN MEDICATION FOR PAIN GIVEN. BED IS LOCKED, ALARMED, AND AT THE LOWEST LEVEL. FALL, SAFETY, ASPIRATION, AND RESPIRATORY PRECAUTIONS HAVE BEEN TAKEN THROUGHOUT THE SHIFT. WILL CONTINUE TO MONITOR UNTIL SHIFT REPORT IS GIVEN AT BEDSIDE TO AM SHIFT.
--- NOTE | 2021-10-29 07:45 | NUR ---
RECEIVED IN BED AWAKE C/O PAIN WILL MEDCIATE ORDERED ASSESSMENT COMPLETED PLAN OF CARE REVIEWED WILL CONTINUE TO MONITOR AND ASSESS
[2021-10-29 07:49] LABS: CALCIUM 8.7 mg/dL (8.4-11.0); CREATININE 5.41 mg/dL (0.55-1.30); POTASSIUM 3.8 mmol/L (3.5-5.1)
[2021-10-29 08:00] VITALS: BP_SYST 122
[2021-10-29] MEDS: FERROUS SULFATE 300 MG/5 ML UDC GT SCH ×2 (10:04→20:47)
[2021-10-29] MEDS: VALPROIC ACID ORAL SYRUP 250 MG/5 ML UDC GT SCH ×3 (10:05→20:50)
[2021-10-29] MEDS: ATORVASTATIN 20 MG TABLET GT SCH (10:05)
[2021-10-29] MEDS: ASPIRIN 81 MG TAB.CHEW GT SCH (10:06)
[2021-10-29] MEDS: NEPHROVITE, (FOLIC ACID/VITAMIN B COMP W-C 1 TAB) GT SCH (10:06)
[2021-10-29] MEDS: CLOPIDOGREL BISULFATE 75 MG TABLET GT SCH (10:06)
[2021-10-29] MEDS: amLODIPine BESYLATE 5 MG TABLET GT SCH (10:09)
[2021-10-29 10:18] LABS: BASOPHILS % (AUTO) 0.5 % (0.0-2.0); EOSINOPHILS # (AUTO) 0.5 K/uL (0.0-0.4); EOSINOPHILS % (AUTO) 5.8 % (0.0-4.0); HEMATOCRIT 24.1 % (36-48); HEMOGLOBIN 8.3 g/dL (12.0-16.0); LYMPHOCYTES # (AUTO) 1.5 K/uL (1.0-5.5); LYMPHOCYTES % (AUTO) 18.3 % (20.5-51.5); MEAN CORPUSCULAR HEMOGLOBIN 32 pg (27-31); MEAN CORPUSCULAR HGB CONC 34 % (32-36); MEAN CORPUSCULAR VOLUME 94 fL (79.0-98.0); MONOCYTES # (AUTO) 0.9 K/uL (0.0-1.0); MONOCYTES % (AUTO) 11.3 % (1.7-9.3); NEUTROPHILS # (AUTO) 5.4 K/uL (1.8-7.7); NEUTROPHILS % (AUTO) 64.1 % (40.0-70.0); PLATELET COUNT (AUTO) 173 K/uL (130-430); RED BLOOD CELL COUNT(AUTO) 2.57 MIL/uL (4.2-6.2); RED CELL DISTRIBUTION WIDTH 16.1 % (9.0-15.0); WHITE BLOOD COUNT (AUTO) 8.4 K/uL (4.8-10.8)
--- NOTE | 2021-10-29 11:57 | NUR ---
RESTING DENIES LUNCH TRAY [PT ENDORSES SHE IS NOT HUNGRY AT THIS TIME TURNED AND REPOSITIONED WILL CONTINUE TO MONITOR AND ASSESS
[2021-10-29 12:06] VITALS: BP_SYST 107
[2021-10-29] MEDS ORDERED: IV Rocephin IV (14:52)
--- NOTE | 2021-10-29 15:42 | NUR ---
Nutrition Note Pt was due to be seen for high risk initial Nutrition Assessment d/t RD Notification received 10/26/21 2318 d/t dysphagia. Pt also meets high nutritional risk criteria d/t TF. Per EMR review, pt has been on pureed, renal diet and TF order was canceled 10/27 (Nepro at 50 ml/hr x16 hrs, Free Water Flush: 100 (frequency unspecified) via GT); pt has an active D/C order to SNF. RD deferred case at this time. RD to continue to follow as per nutrition care standards.
--- NOTE | 2021-10-29 15:55 | NUR ---
CM : faxed the clinicals package and dc back order to [facility]. fax # [phone] tel #[phone] attn admitting dept. Addendum: 10/29/21 at 1613 by Slick Segovia RN DC Package place in nursing unit, KAREN Ridley made aware once received the bed assignment, to arrange [facility] ambulance with plaster caster to monitor trach to oxygen ( no vent). May use any ambulance with Medicare AB insurance.
[2021-10-29 16:02] VITALS: BP_SYST 111
--- NOTE | 2021-10-29 16:12 | NUR ---
PT WITH DISCHARGE ORDER BACK TO SNF CALLED TRIAL MANAGEMENT ASSOCIATE AND PER TRIAL MANAGEMENT ASSOCIATE SHE WILL CALL SNF FOR A BED PER TRIAL MANAGEMENT ASSOCIATE DISCHARGE MAY NOT HAP[PEN UNTIL TOMORROW PT AWARE
[2021-10-29] MEDS ORDERED: cefTRIAXone 1 GM IVPB PREMIX 50 ML IV SCH (17:00)
[2021-10-29 19:30] VITALS: BP_SYST 119
--- NOTE | 2021-10-29 19:30 | NUR ---
INITIAL NOTE AT INITIAL ASSESSMENT, PATIENT IS RESTING IN BED, STABLE, NO SIGNS OF RESPIRATORY DISTRESS. PLAN OF CARE FOR THE EVENING IS COMMUNICATED. PATIENT VERBALIZES NO PAIN. BED IS LOCKED, ALARMED, AND AT THE LOWEST LEVEL. FALL, SAFETY, ASPIRATION, AND RESPIRATORY PRECAUTIONS WILL BE IN PLACE THROUGHOUT THE SHIFT. TRACH CARE WILL BE PROVIDED [id number]. PATIENT WILL BE TURNED [id number].
[2021-10-29] MEDS: levETIRAcetam 500 MG TABLET GT SCH (20:47)
--- NOTE | 2021-10-29 22:10 | NUR ---
COMMUNICATION W/ DR. AMANDA PATEL PAGED AT THIS TIME; HE WAS MADE AWARE THAT THIS PATIENT WITH TRACH DOES NOT HAVE BREATHING TREATMENTS ORDERS. GAVE ORDERS FOR DUONEB 3ML HHN PRN SHORTNESS OF BREATH OR WHEEZING.
[2021-10-29] MEDS ORDERED: IPRATROPIUM/ALBUTEROL SULFATE 3 ML AMPUL.NEB (DUONEB) INH PRN (22:15)
[2021-10-30] VITALS: BP_SYST 112
--- NOTE | 2021-10-30 02:36 | NUR ---
HYGIENE CARE PATIENT HAD BOWEL MOVEMENT, HYGIENE CARE PROVIDED. PATIENT TOLERATED WELL. SHE IS REPOSITIONED FOR COMFORT. BED IS LOCKED, ALARMED, AND AT THE LOWEST LEVEL.
--- NOTE | 2021-10-30 06:35 | NUR ---
CLOSING NOTE NO CHANGES. PATIENT SLEPT WELL THROUGHOUT THE SHIFT, HER BLOOD PRESSURE REMAINED WNL. PATIENT IS ABLE TO COMMUNICATE BY WHISPERING/NODDING/SHAKING HEAD. PATIENT COMPLAINED ABOUT LEFT WRIST PAIN, PRN MEDICATION FOR PAIN GIVEN. BED IS LOCKED, ALARMED, AND AT THE LOWEST LEVEL. FALL, SAFETY, ASPIRATION, AND RESPIRATORY PRECAUTIONS HAVE BEEN TAKEN THROUGHOUT THE SHIFT. WILL CONTINUE TO MONITOR UNTIL SHIFT REPORT IS GIVEN AT BEDSIDE TO AM SHIFT.
[2021-10-30 07:29] LABS: CREATININE 7.41 mg/dL (0.55-1.30); POTASSIUM 3.8 mmol/L (3.5-5.1)
--- NOTE | 2021-10-30 07:30 | NUR ---
Morning Rounds: Patient lying on the bed,awake,alert and oriented x3. Tube feeds on going. With left hand iv to tko.Right upper chest perma catheter on,dressing clean and dry.Patient maintained on t-bar 5l/min.With good saturation.No acute distress.
[2021-10-30 08:16] LABS: BASOPHILS % (AUTO) 0.5 % (0.0-2.0); EOSINOPHILS # (AUTO) 0.6 K/uL (0.0-0.4); EOSINOPHILS % (AUTO) 8.9 % (0.0-4.0); HEMOGLOBIN 7.3 g/dL (12.0-16.0); LYMPHOCYTES # (AUTO) 2.4 K/uL (1.0-5.5); LYMPHOCYTES % (AUTO) 34.6 % (20.5-51.5); MEAN CORPUSCULAR HEMOGLOBIN 32 pg (27-31); MEAN CORPUSCULAR HGB CONC 34 % (32-36); MEAN CORPUSCULAR VOLUME 94 fL (79.0-98.0); MONOCYTES # (AUTO) 0.7 K/uL (0.0-1.0); MONOCYTES % (AUTO) 9.7 % (1.7-9.3); NEUTROPHILS # (AUTO) 3.2 K/uL (1.8-7.7); NEUTROPHILS % (AUTO) 46.3 % (40.0-70.0); PLATELET COUNT (AUTO) 181 K/uL (130-430); RED BLOOD CELL COUNT(AUTO) 2.27 MIL/uL (4.2-6.2); RED CELL DISTRIBUTION WIDTH 16.3 % (9.0-15.0)
[2021-10-30] MEDS: ASPIRIN 81 MG TAB.CHEW GT SCH (08:43)
[2021-10-30] MEDS: CLOPIDOGREL BISULFATE 75 MG TABLET GT SCH (08:44)
[2021-10-30] MEDS: amLODIPine BESYLATE 5 MG TABLET GT SCH (08:44)
[2021-10-30] MEDS: ATORVASTATIN 20 MG TABLET GT SCH (08:44)
[2021-10-30] MEDS: FERROUS SULFATE 300 MG/5 ML UDC GT SCH (08:44)
[2021-10-30] MEDS: NEPHROVITE, (FOLIC ACID/VITAMIN B COMP W-C 1 TAB) GT SCH (08:44)
[2021-10-30 08:45] VITALS: BP_SYST 121
[2021-10-30 09:00] LABS: HEMATOCRIT 21.4 % (36-48)
[2021-10-30] MEDS: VALPROIC ACID ORAL SYRUP 250 MG/5 ML UDC GT SCH (09:43)
--- NOTE | 2021-10-30 10:10 | NUR ---
CONFIRMED BED ASSIGNMENT WITH [facility] RM 207A. SPOKE TO NEGRO WHO GAVE [phone] FOR REPORT. ARRANGED S AMBULANCE TRANSPORT WITH [facility]. GLASS BLOCK BENDER TIME IS 1245. SPOKE TO CASEY.
--- NOTE | 2021-10-30 10:15 | NUR ---
Nephro rounds: Per Dr Benavidez ,no Hd needed today and they will do it at her facility.[facility]
--- NOTE | 2021-10-30 10:29 | NUR ---
Called family: Left message to Osiris Nolen,daughter of the patient.Called back and Alicia monroe tech spoke to her and informed her [facility].
[2021-10-30 10:54] VITALS: BP_SYST 120
--- NOTE | 2021-10-30 12:33 | NUR ---
REPORT NOTES: REPORT GIVEN TO NIYAH Luna NURSING [employer] ATTENDANT OF [facility].
--- NOTE | 2021-10-30 13:15 | NUR ---
DC TRANSFER NOTES: TRANSFER PACKETS GIVEN TO [facility].KEPT IV ACCESS LEFT HAND PER FACILITY NURSE. G TUBE CLAMPED,DRESSING CLEAN AND DRY.RIGHT UPPER CHEST PERMA CATHETER INTACT.PATIENT WAS TRANSPORTED BY [facility] IN STABLE CONDITION. MAINTAINED T-BAR 5L/MIN,WITH GOOD SATURATION.
--- NOTE | 2021-11-01 08:19 | NUR ---
Dispo code 03
== END 2021-10-30 13:15 | disposition home or self-care (01) | DRG 193 ==
LOC: SED 13:12 → STU 16:59
PROVIDERS: ADMIT Student in an Organized Health Care Education/Training Program; ATTEND Student in an Organized Health Care Education/Training Program
PROC: 5A1D70Z Performance of Urinary Filtration, Intermittent, Less than 6 Hours Per Day (ICD-10-PCS; principal; 2021-10-28)
DX: J18.9 Pneumonia, unspecified organism (principal); N18.6 End stage renal disease; I12.0 Hypertensive chronic kidney disease with stage 5 chronic kidney disease or end stage renal disease; D68.9 Coagulation defect, unspecified; J96.10 Chronic respiratory failure, unspecified whether with hypoxia or hypercapnia; I69.351 Hemiplegia and hemiparesis following cerebral infarction affecting right dominant side; K21.9 Gastro-esophageal reflux disease without esophagitis; I95.9 Hypotension, unspecified; G40.909 Epilepsy, unspecified, not intractable, without status epilepticus; Z20.822 Contact with and (suspected) exposure to COVID-19; Z88.8 Allergy status to other drugs, medicaments and biological substances; Z99.2 Dependence on renal dialysis; Z79.899 Other long term (current) drug therapy; Z93.0 Tracheostomy status; Z79.82 Long term (current) use of aspirin; Z79.891 Long term (current) use of opiate analgesic
CPT/HCPCS: 36415; 71045; 80048; 80053; 82607; 82746; 83540; 83550; 83735; 84100; 84484; 85025; 85610-TC; 86886; 86900; 86901; 87081; 90935; 93005; 94760; 96374; 99285; C9113; G0378; J0696; J1644; Q5106

== ENCOUNTER 2023-12-13 15:09 | Inpatient (IN) | payer OTHER ==
[~2023-12-13] VITALS: Ht 170.2 cm; Wt 88.0 kg
[2023-12-13] MEDS: levETIRAcetam 500 MG TABLET ONE (07:50)
[~2023-12-13 15:09] MED LIST changes: -CARV25TA55 GT; -CAT1PAT GT; -COLL100 GT; +IV Rocephin IV; +LIDVIS100 MM
[2023-12-13 15:17] VITALS: BP_SYST 118; PULSE 68; RESP 16; TEMP 98.4; O2SAT 96
[2023-12-13] MEDS ORDERED: ATOR-1 PO (16:08)
[2023-12-13] MEDS ORDERED: HYDR-3917 PO (16:08)
[2023-12-13] MEDS ORDERED: MIDO10TA GT (16:08)
[2023-12-13] MEDS ORDERED: VALP250S3 GT (16:08)
[2023-12-13] MEDS ORDERED: LACT10SO6 GT (16:08)
[2023-12-13] MEDS ORDERED: AMLO5TAB92 PO (16:08)
[2023-12-13] MEDS ORDERED: ONDA-8 TL (16:08)
[2023-12-13] MEDS ORDERED: NALO4SPR NS (16:08)
[2023-12-13] MEDS ORDERED: CLON0.1T GT (16:08)
[2023-12-13] MEDS ORDERED: METO25TA6 GT (16:08)
[2023-12-13] MEDS ORDERED: ASPI-1393 GT (16:08)
[2023-12-13] MEDS ORDERED: BISA10SU61 RC (16:08)
[2023-12-13 16:26] LABS: BASOPHILS # (AUTO) 0.1 K/uL (0.0-0.2); BASOPHILS % (AUTO) 1.1 % (0.0-2.0); EOSINOPHILS # (AUTO) 0.8 K/uL (0.0-0.4); EOSINOPHILS % (AUTO) 8.1 % (0.0-4.0); HEMOGLOBIN 9.9 g/dL (12.0-16.0); LYMPHOCYTES # (AUTO) 3.2 K/uL (1.0-5.5); LYMPHOCYTES % (AUTO) 32.8 % (20.5-51.5); MEAN CORPUSCULAR HEMOGLOBIN 33 pg (27-31); MEAN CORPUSCULAR HGB CONC 34 % (32-36); MEAN CORPUSCULAR VOLUME 95 fL (79.0-98.0); MONOCYTES # (AUTO) 0.7 K/uL (0.0-1.0); MONOCYTES % (AUTO) 6.9 % (1.7-9.3); NEUTROPHILS # (AUTO) 4.9 K/uL (1.8-7.7); NEUTROPHILS % (AUTO) 51.1 % (40.0-70.0); PLATELET COUNT (AUTO) 189 K/uL (130-430); RED BLOOD CELL COUNT(AUTO) 3.05 MIL/uL (4.2-6.2); RED CELL DISTRIBUTION WIDTH 16.8 % (9.0-15.0); WHITE BLOOD COUNT (AUTO) 9.6 K/uL (4.8-10.8)
[2023-12-13] MEDS ORDERED: HYDR0.5S2 GT (16:33)
[2023-12-13] MEDS ORDERED: ALBU90AE3 (16:33)
[2023-12-13] MEDS ORDERED: [UNRECOGNIZED DRUG - CODE] GT (16:33)
[2023-12-13] MEDS ORDERED: LEVE500V GT (16:33)
[2023-12-13] MEDS ORDERED: ACET325T39 GT (16:33)
[2023-12-13 16:35] LABS: INR 0.9 (0.8-1.2); PROTHROMBIN TIME 9.6 SECS (9.5-12.5)
[2023-12-13 16:38] LABS: ANION GAP 10 (5-15); CALCIUM 9.7 mg/dL (8.4-11.0); CARBON DIOXIDE 32 mmol/L (23-29); CHLORIDE 88 mmol/L (98-107); GFR AFRICAN AMERICAN 6 mL/min (>90); GLUCOSE 88 mg/dL (74-106); POTASSIUM 5.4 mmol/L (3.5-5.1); SODIUM SERUM 130 mmol/L (136-145); UREA NITROGEN, BLOOD 81 mg/dL (8-21)
[2023-12-13 16:39] LABS: GFR NON AFRICAN-AMERICAN 5 mL/min (>90)
[2023-12-13 16:41] LABS: CREATININE 8.81 mg/dL (0.55-1.30)
[2023-12-13 17:50] VITALS: PULSE 66; O2SAT 100
[2023-12-13] MEDS ORDERED: MUPIROCIN 2% TOPICAL OINTMENT 22 GM NS PRN (18:00)
[2023-12-13] MEDS ORDERED: MORPHINE 2 MG/ML INJ. SYRINGE IVP PRN (18:00)
[2023-12-13] MEDS ORDERED: MAGNESIUM SULFATE 50 ML IV PRN (18:00)
[2023-12-13] MEDS ORDERED: POTASSIUM CHLORIDE 20 MEQ TABLET.ER PO PRN (18:00)
[2023-12-13] MEDS ORDERED: ACETAMINOPHEN 325 MG TABLET PO PRN (18:00)
[2023-12-13] MEDS ORDERED: ZOLPIDEM TARTRATE 5 MG TABLET GT PRN (18:00)
[2023-12-13] MEDS ORDERED: ONDANSETRON HCL 4 MG/2 ML VIAL IVP PRN (18:00)
[2023-12-13] MEDS ORDERED: LORazepam 2 MG/ML VIAL IVP PRN (18:00)
[2023-12-13] MEDS ORDERED: DOCUSATE SODIUM 100 MG CAPSULE PO PRN (18:00)
[2023-12-13] MEDS ORDERED: SODIUM ZIRCONIUM CYCLOSILICATE 10 GM POWD.PACK PO ONE (18:15)
[2023-12-13] MEDS ORDERED: DOCUSATE SODIUM 100 MG/10 ML UDC GT PRN ×2 (18:30)
[2023-12-13] MEDS ORDERED: POTASSIUM CHLORIDE 20 MEQ/PKT PACKET GT PRN ×2 (18:30)
[2023-12-13] MEDS: SODIUM ZIRCONIUM CYCLOSILICATE 10 GM POWD.PACK PO ONE (18:48)
[2023-12-13] MEDS: VALPROIC ACID ORAL SYRUP 250 MG/5 ML UDC GT SCH (21:00)
[2023-12-13] MEDS ORDERED: levETIRAcetam 500 MG TABLET GT SCH (21:00)
[2023-12-13] MEDS: LevETIRAcetam 500 MG/5 ML UDC ORAL LIQUID GT SCH (21:00)
[2023-12-13] MEDS: FERROUS SULFATE 300 MG/5 ML UDC GT SCH (23:22)
[2023-12-13] MEDS: HEPARIN SODIUM,PORCINE 5,000 UNITS/ML VIAL SUBCUT SCH (23:24)
[2023-12-13 23:29] VITALS: O2SAT 95
[2023-12-13] MEDS: ALBUTEROL SULFATE 0.083% 2.5 MG/3 ML VIAL.NEB INH PRN (23:29)
[2023-12-14] VITALS (7 sets, daily range): BP systolic 94–143; PULSE 70–88; RESP 16–20; TEMP 96.3–98.4; O2SAT 95–100
[2023-12-14 06:54] LABS: CALCIUM 9.6 mg/dL (8.4-11.0); POTASSIUM 4.4 mmol/L (3.5-5.1)
[2023-12-14 07:00] LABS: CREATININE 9.84 mg/dL (0.55-1.30)
[2023-12-14 08:24] LABS: BASOPHILS % (AUTO) 0.4 % (0.0-2.0); EOSINOPHILS # (AUTO) 0.6 K/uL (0.0-0.4); EOSINOPHILS % (AUTO) 8.1 % (0.0-4.0); HEMATOCRIT 26.2 % (36-48); HEMOGLOBIN 8.8 g/dL (12.0-16.0); LYMPHOCYTES # (AUTO) 2.7 K/uL (1.0-5.5); LYMPHOCYTES % (AUTO) 35.1 % (20.5-51.5); MEAN CORPUSCULAR HEMOGLOBIN 32 pg (27-31); MEAN CORPUSCULAR HGB CONC 34 % (32-36); MEAN CORPUSCULAR VOLUME 95 fL (79.0-98.0); MONOCYTES # (AUTO) 0.5 K/uL (0.0-1.0); MONOCYTES % (AUTO) 6.1 % (1.7-9.3); NEUTROPHILS # (AUTO) 3.9 K/uL (1.8-7.7); NEUTROPHILS % (AUTO) 50.3 % (40.0-70.0); PLATELET COUNT (AUTO) 168 K/uL (130-430); RED BLOOD CELL COUNT(AUTO) 2.77 MIL/uL (4.2-6.2); RED CELL DISTRIBUTION WIDTH 16.8 % (9.0-15.0); WHITE BLOOD COUNT (AUTO) 7.8 K/uL (4.8-10.8)
[2023-12-14] MEDS ORDERED: ASPIRIN 81 MG TABLET(ECOTRIN) PO SCH (09:00)
[2023-12-14] MEDS ORDERED: ATORVASTATIN 20 MG TABLET GT SCH (09:00)
[2023-12-14] MEDS: FERROUS SULFATE 300 MG/5 ML UDC GT SCH (09:45)
[2023-12-14] MEDS: amLODIPine BESYLATE 5 MG TABLET GT SCH (09:46)
[2023-12-14] MEDS: ASPIRIN 81 MG TAB.CHEW GT SCH (09:46)
[2023-12-14] MEDS: ATORVASTATIN 20 MG TABLET GT SCH (09:47)
[2023-12-14] MEDS: VALPROIC ACID ORAL SYRUP 250 MG/5 ML UDC GT SCH (09:47)
[2023-12-15] VITALS (10 sets, daily range): BP systolic 118–133; PULSE 70–86; RESP 15–20; TEMP 96.2–98.3; O2SAT 94–100
[2023-12-15] MEDS: MORPHINE 2 MG/ML INJ. SYRINGE IVP PRN (03:11)
[2023-12-15 06:11] LABS: BASOPHILS % (AUTO) 0.2 % (0.0-2.0); EOSINOPHILS # (AUTO) 0.6 K/uL (0.0-0.4); EOSINOPHILS % (AUTO) 8.9 % (0.0-4.0); HEMATOCRIT 27.6 % (36-48); HEMOGLOBIN 9.4 g/dL (12.0-16.0); LYMPHOCYTES # (AUTO) 2.1 K/uL (1.0-5.5); LYMPHOCYTES % (AUTO) 30.6 % (20.5-51.5); MEAN CORPUSCULAR HEMOGLOBIN 32 pg (27-31); MEAN CORPUSCULAR HGB CONC 34 % (32-36); MEAN CORPUSCULAR VOLUME 94 fL (79.0-98.0); MONOCYTES # (AUTO) 0.5 K/uL (0.0-1.0); MONOCYTES % (AUTO) 7.2 % (1.7-9.3); NEUTROPHILS # (AUTO) 3.7 K/uL (1.8-7.7); NEUTROPHILS % (AUTO) 53.1 % (40.0-70.0); PLATELET COUNT (AUTO) 155 K/uL (130-430); RED BLOOD CELL COUNT(AUTO) 2.93 MIL/uL (4.2-6.2); RED CELL DISTRIBUTION WIDTH 16.3 % (9.0-15.0); WHITE BLOOD COUNT (AUTO) 6.9 K/uL (4.8-10.8)
[2023-12-15 06:50] LABS: CALCIUM 9.6 mg/dL (8.4-11.0); POTASSIUM 4.9 mmol/L (3.5-5.1)
[2023-12-15 06:58] LABS: CREATININE 11.06 mg/dL (0.55-1.30)
[2023-12-15] MEDS: HEPARIN SODIUM, PORCINE 10,000 UNITS/ 10 ML VIAL MC ONE (19:10)
[2023-12-16] VITALS (13 sets, daily range): BP systolic 126–155; PULSE 79–91; RESP 16–20; TEMP 97.9–98.7; O2SAT 97–100
[2023-12-16 06:19] LABS: BASOPHILS % (AUTO) 0.4 % (0.0-2.0); EOSINOPHILS # (AUTO) 0.6 K/uL (0.0-0.4); EOSINOPHILS % (AUTO) 8.9 % (0.0-4.0); HEMATOCRIT 26.2 % (36-48); HEMOGLOBIN 8.8 g/dL (12.0-16.0); LYMPHOCYTES # (AUTO) 1.9 K/uL (1.0-5.5); LYMPHOCYTES % (AUTO) 27.9 % (20.5-51.5); MEAN CORPUSCULAR HEMOGLOBIN 32 pg (27-31); MEAN CORPUSCULAR HGB CONC 34 % (32-36); MEAN CORPUSCULAR VOLUME 95 fL (79.0-98.0); MONOCYTES # (AUTO) 0.5 K/uL (0.0-1.0); NEUTROPHILS # (AUTO) 3.8 K/uL (1.8-7.7); NEUTROPHILS % (AUTO) 55.8 % (40.0-70.0); PLATELET COUNT (AUTO) 171 K/uL (130-430); RED BLOOD CELL COUNT(AUTO) 2.76 MIL/uL (4.2-6.2); RED CELL DISTRIBUTION WIDTH 16.3 % (9.0-15.0); WHITE BLOOD COUNT (AUTO) 6.9 K/uL (4.8-10.8)
[2023-12-16 06:50] LABS: CREATININE 6.11 mg/dL (0.55-1.30); POTASSIUM 4.7 mmol/L (3.5-5.1)
[2023-12-16] MEDS: ACETAMINOPHEN 325 MG TABLET GT PRN (18:40)
[2023-12-16] MEDS ORDERED: hydrALAZINE HCL 20 MG/ML VIAL IVP ONE (23:15)
[2023-12-17 01:21] VITALS: BP_SYST 143; PULSE 85; RESP 17; TEMP 97.8; O2SAT 100
[2023-12-17] MEDS ORDERED: EPOETIN ALFA-EPBX 10,000 UNITS/ML VIAL SUBCUT SCH (17:00)
== END 2023-12-17 02:04 | DRG 640 ==
LOC: SED 15:09 → STU 17:44
PROVIDERS: ADMIT Family Medicine; ATTEND Family Medicine
PROC: 5A1D70Z Performance of Urinary Filtration, Intermittent, Less than 6 Hours Per Day (ICD-10-PCS; principal; 2023-12-15)
DX: E87.5 Hyperkalemia (principal); N18.6 End stage renal disease; J96.10 Chronic respiratory failure, unspecified whether with hypoxia or hypercapnia; I12.0 Hypertensive chronic kidney disease with stage 5 chronic kidney disease or end stage renal disease; E83.41 Hypermagnesemia; Z93.0 Tracheostomy status; E11.22 Type 2 diabetes mellitus with diabetic chronic kidney disease; D64.9 Anemia, unspecified; E87.1 Hypo-osmolality and hyponatremia; Z86.73 Personal history of transient ischemic attack (TIA), and cerebral infarction without residual deficits; Z88.2 Allergy status to sulfonamides
CPT/HCPCS: 36415; 71045; 80048; 83735; 83880; 84484; 85025; 85610; 85730; 87081; 90935; 93005; 94070; 94640; 94760; 99285; G0378; J1644; J2270